=== PATIENT | male | born 1945 | race Caucasian/White ===

== ENCOUNTER → 2020-07-06 | Outpatient (CLI) | payer MEDICARE, BC ==
[~2020-07-06] MED LIST: FLOMAX 0.4 MG0.4 MG PO; LIPITOR TAB 2020 MG PO; METOPROLOL SUCC25 MG PO
== END ==
LOC: KOH-I 06-26 08:00
DX: Z12.2 Encounter for screening for malignant neoplasm of respiratory organs (principal); F17.210 Nicotine dependence, cigarettes, uncomplicated
CPT/HCPCS: 71271

== ENCOUNTER → 2022-01-02 | Outpatient (CLI) | payer MEDICARE, BC | LOC: HEART 5 10:30 | DX: R06.02 Shortness of breath (principal); I08.2 Rheumatic disorders of both aortic and tricuspid valves | CPT/HCPCS: 93306 ==